=== PATIENT | male | born 1955 | race American Indian/Alaskan Native ===

== ENCOUNTER 2016-11-15 09:56 | Outpatient (CLI) | payer BC ==
--- NOTE | 2016-11-15 11:27 | Cat Scan Report ---
CT CHEST WITHOUT CONTRAST: HISTORY: Pulmonary nodule. TECHNIQUE: Helical CT with sagittal and coronal reformatted images. FINDINGS: No comparison at this facility. There are a few scattered subpleural blebs in the upper lobes consistent with minimal paraseptal emphysematous changes. The remaining lung parenchyma is within normal limits. No pulmonary nodule is demonstrated on noncontrast CT. There is certainly no suspicious pulmonary mass. No pleural effusion or pneumothorax. The thyroid gland, tracheobronchial tree, esophagus, heart, pericardium and mediastinal vessels are unremarkable. 1 cm calcified lymph node in the aortopulmonary window is consistent with chronic granulomatous disease. No thoracic adenopathy The thoracic cage is intact. Limited images of the upper abdomen demonstrate a 4.3 cm lobulated cyst in the right hepatic lobe. IMPRESSION: No suspicious pulmonary nodule or mass. Evidence of chronic granulomatous disease. Minimal paraseptal emphysematous changes in the upper lobes. Liver cyst.
== END 2016-11-15 09:57 | disposition home or self-care (01) ==
LOC: CT 09:56
PROVIDERS: ATTEND Internal Medicine
DX: R91.1 Solitary pulmonary nodule (principal); D71 Functional disorders of polymorphonuclear neutrophils; K76.89 Other specified diseases of liver
CPT/HCPCS: 71250

== ENCOUNTER 2018-11-15 06:45 | Outpatient (CLI) | payer BC ==
--- NOTE | 2018-11-15 17:18 | Cat Scan Report ---
PROCEDURE: CT abdomen without contrast. TECHNIQUE: Computerized axial tomography of the abdomen was performed without intravenous contrast. This study is performed without intravascular contrast material and its sensitivity for abdominal and pelvic pathology, including neoplasms, inflammation, abscess, free fluid, thrombosis, arterial disse ction and infarction, is reduced compared with a contrast enhanced study. CT DOSE LENGTH PRODUCT: Not provided mGycm HISTORY: K76.89 HEPATIC CYST COMPARISONS: None. FINDINGS: The lung bases are clear. There are no pleural effusions. The heart size is normal. There is a large focal mass in the right lobe of the liver. This mass is sharply defined and measures 5.3 cm x 4.3 cm in cross-section. It measures fluid attenuation and is consistent with a large hepatic cyst. There is a second smaller focal mass of low-attenuation within the left lobe of the liver. This measures 1.3 cm x 0.8 cm in cross-section. This may represent a second cyst. The remainder of the liver appears ho mogeneous. The gallbladder is present. There is no biliary dilatation. The pancreas and spleen are gr ossly normal. There is an ovoid mass contiguous with the left adrenal gland and the left kidney. This measures 3.0 cm x 2.2 cm in cross-section. It has low attenuation. It probably represents an adrenal adenoma. Both kidneys appear normal in size and configuration. The abdominal aorta has a normal thomas maureen. There is no retroperitoneal adenopathy. The unopacified gastrointestinal tract is unremarkable. A normal appendix is visible. The regional skeleton appears intact. The pelvis was not imaged. IMPRESSION: Large hepatic cyst and possible small second hepatic cyst. Probable left adrenal adenoma . No evidence of acute disease in the abdomen. This document is electronically signed by Kuldeep Markham MD., November 15 2018 05:16:34 PM ET
== END 2018-11-15 06:46 | disposition home or self-care (01) ==
LOC: CT 06:45
PROVIDERS: ATTEND Internal Medicine
DX: K76.89 Other specified diseases of liver (principal)
CPT/HCPCS: 74150

== ENCOUNTER 2020-01-09 08:57 | Outpatient (CLI) | payer BC ==
--- NOTE | 2020-01-09 11:11 | Vascular Lab Report ---
ULTRASOUND HISTORY: leg pain COMPARISON: None. TECHNIQUE: ABIs of the lower extremity were obtained FINDINGS: Right brachial pressure 157 and left brachial pressure 156 Right posterior tibial pressure 164 right dorsal pedis pressure 167 Left posterior tibial pressure 165 and left dorsal pedis pressure is 163 IMPRESSION: 1. Right ankle brachial index 1.06 and left ankle brachial index 1.05 Signer Name: Minesh De La Cruz MD Signed: 01/09/2020 11:07 AM Workstation Name: [id number]
== END 2020-01-09 08:58 | disposition home or self-care (01) ==
LOC: VAS 08:57
PROVIDERS: ATTEND Internal Medicine
DX: M79.606 Pain in leg, unspecified (principal); Z72.0 Tobacco use
CPT/HCPCS: 93922

== ENCOUNTER 2020-07-29 07:01 | Day surgery (SDC) | payer BC ==
[~2020-07-29 07:01] MED LIST: SODIUM CHLORIDE 0.9% 1000 ML 1,000 ML IV SCH
--- NOTE | 2020-07-29 07:59 | Anesthesia Consultation ---
Anesthesia Consult and Med Hx Date of service: 07/29/20 - Airway Anesthetic Teeth Evaluation: Good ROM Head & Neck: Adequate Mental/Hyoid Distance: Adequate Mallampati Class: Class II Intubation Access Assessment: Good - Pulmonary Exam CTA: Yes - Cardiac Exam Cardiac Exam: RRR - Pre-Operative Health Status ASA Pre-Surgery Classification: ASA2 Proposed Anesthetic Plan: MAC
--- NOTE | 2020-07-29 08:00 | Anesthesia Day of Surgery ---
Anesthesia Day of Surgery - Day of Surgery Patient Examined: Yes Patient H&P Reviewed: Yes Patient is NPO: Yes
--- NOTE | 2020-07-29 09:00 | Post Anesthesia Evaluation ---
- Post Anesthesia Evaluation Patient Participated: Yes Airway Patent: Yes Stable Respiratory Function: Yes Nausea/Vomiting: Yes Temp > 96.8F: No Pain Manageable: Yes Adequeate Hydration: Yes Anesthesia Complications: Yes Block Receding Appropriately: No Patient on Ventilator: Yes
[2020-07-29] MEDS ORDERED: propofoL 200 MG/20 ML VIAL IV ONE (09:47)
--- NOTE | 2020-07-29 10:12 | Short Stay Summary ---
Short Stay Documentation Date of service: 07/29/20 Narrative H&P: The patient presents for surveillance colonoscopy for personal history of colon polyps - History Past Medical History: other (no changes from clinic note) Past Surgical History: No surgical history Social history: no significant social history - Allergies and Medications Current Medications: Allergies No Known Allergies Allergy (Unverified 07/29/20 08:24) Home Medications Medication Instructions Recorded Confirmed Last Taken Type Atorvastatin [Lipitor Tab] 40 mg PO QHS 07/29/20 07/29/20 Unknown History Active Medications Sodium Chloride (Nacl 0.9% 1000 Ml) 1,000 mls @ 50 mls/hr IV DIRECT IVETTE Last Admin: 07/29/20 08:15 Dose: 50 mls/hr Documented by: - Physical exam General appearance: no acute distress Lungs: Clear to auscultation Gastrointestinal: normal - Brief post op/procedure progress note Date of procedure: 07/29/20 Pre-op diagnosis: Surveillance colonoscopy for history of colon polyps Post-op diagnosis: other (internal hemorrhoids) Procedure: Colonoscopy Anesthesia: MAC Findings: Internal hemorrhoids, otherwise unremarkable colonoscopy Surgeon: HERBIE CRAIG Estimated blood loss: none Pathology: none - Disposition Condition at discharge: Good Disposition: DC-01 TO HOME OR SELFCARE Short Stay Discharge Plan Follow up with: CATARINA STOCKTON MD [Primary Care Provider] - 7 Days
--- NOTE | 2020-07-29 10:15 | Operative Report ---
Operative Report Operative Report: Colonoscopy Procedure Note Date of procedure: 07/29/2020 Endoscopist: Andres Contreras Pre-op diagnosis/indication: Surveillance colonoscopy for personal history of colon polyps Post-op diagnosis: Internal hemorrhoids Medications: MAC Estimated blood loss: None Description of procedure: After consent was obtained, the patient was placed in the left lateral decubitus position. The olympus colonoscope was inserted into the rectum and advanced to the cecum without difficulty. The patient tolerated the procedure well. The views of the mucosa were good. The quality of prep was good. The patient's vital signs were monitored continuously throughout the procedure. Findings: Internal hemorrhoids were visualized on retroflexion view. Otherwise, the colon appeared normal. Impression: 1. Internal hemorrhoids, otherwise normal colonoscopy. Recommendations: -repeat colonoscopy in 5 years for personal history of colon polyps
--- NOTE | 2020-07-29 10:21 | Post Anesthesia Evaluation ---
- Post Anesthesia Evaluation Patient Participated: Yes Airway Patent: Yes Stable Respiratory Function: Yes Nausea/Vomiting: No Temp > 96.8F: Yes Pain Manageable: Yes Adequeate Hydration: Yes Anesthesia Complications: No Block Receding Appropriately: Not Applicable Patient on Ventilator: No
[2020-07-29 10:36] VITALS: BP 120/66
== END 2020-07-29 07:02 | disposition home or self-care (01) ==
LOC: GIO 07:01
PROVIDERS: ATTEND Internal Medicine Gastroenterology
DX: Z12.11 Encounter for screening for malignant neoplasm of colon (principal); K64.8 Other hemorrhoids; F17.210 Nicotine dependence, cigarettes, uncomplicated; E78.00 Pure hypercholesterolemia, unspecified; Z86.010 Personal history of colon polyps; Z79.899 Other long term (current) drug therapy
CPT/HCPCS: 45378; J2704; J7030

== ENCOUNTER 2020-10-31 07:38 | Outpatient (CLI) | payer BC ==
--- NOTE | 2020-10-31 08:38 | Cat Scan Report ---
CT CHEST WITHOUT CONTRAST INDICATION / CLINICAL INFORMATION: FOLLOW UP LUNG NODULES. TECHNIQUE: Axial CT images were obtained through the chest without contrast. Sagittal and coronal reformatted im ages. All CT scans at this location are performed using CT dose reduction for ALARA by means of autom ated exposure control. COMPARISON: 11/19/2019. 11/15/2016. FINDINGS: HEART: No significant abnormality. THORACIC AORTA: No significant abnormality. Stable minimal calcifications. MEDIASTINUM and JOSE ALFREDO: No significant abnormality. LUNGS: No acute air space or interstitial disease. Mild paraseptal emphysematous changes in the uppe r lung zones are again noted. No suspicious pulmonary nodule or mass. PLEURA: No significant pleural effusion. No pneumothorax. SKELETAL SYSTEM: No significant abnormality. UPPER ABDOMEN: Scattered hepatic cysts are again noted with the largest measuring 6.3 cm near the dom e of the right hepatic lobe. 2.5 cm left adrenal adenoma is unchanged. ADDITIONAL FINDINGS: None. IMPRESSION: No change. Mild paraseptal emphysematous changes. No suspicious nodule is detected. Hepatic cysts. Left adrenal adenoma, unchanged. Signer Name: Rui Card Jr, MD Signed: 10/31/2020 8:34 AM Workstation Name: [id number]
== END 2020-10-31 07:39 | disposition home or self-care (01) ==
LOC: CT 07:38
PROVIDERS: ATTEND Internal Medicine
DX: J43.9 Emphysema, unspecified (principal); R91.8 Other nonspecific abnormal finding of lung field; I70.0 Atherosclerosis of aorta; K76.89 Other specified diseases of liver; E27.9 Disorder of adrenal gland, unspecified
CPT/HCPCS: 71250